=== PATIENT | male | born 1965 | race Caucasian/White ===

== ENCOUNTER 2023-10-04 11:07 | Day surgery (SDC) | payer OTHER, BC, MEDICAID, SELFPAY ==
[2023-10-04 11:28] VITALS: BP 120/84; PULSE 73; RESP 18; TEMP 36; O2SAT 97; BMI 31.8
[2023-10-04] MEDS: sodium chloride 0.9% 1,000 ML 30 ML IV (11:38)
--- NOTE | 2023-10-04 12:23 | ANES.PREANE2 ---
Pre-Anesthetic Assessment Height/Weight: Height 1.83 m Weight 106.594 kg Temp Pulse Resp BP Pulse Ox O2 Del Method 96.8 F L 73 18 120/84 97 Room Air 10/04/23 11:28 10/04/23 11:28 10/04/23 11:28 10/04/23 11:28 10/04/23 11:28 10/04/23 11:28 Preop Diagnosis: screening Operation Date: 10/04/23 13:00 Proposed Procedures p Colonoscopy 72497, G0121, Z12.11(Not Applicable) - Zheng Osorio, DO Was Beta Yan taken within 24 hours: N/A Was Clonidine taken within 24 hours: N/A Last intake: Intake Last Liquid Date 07/03/23 Last Liquid Time 20:30 Last Solid Date 10/02/23 Last Solid Time 20:00 Social Tobacco vapes, this morning Exam alert, oriented x 3, clear to auscultation bilaterally and regular rate & rhythm Airway Submandibular: within normal limits Cervical ROM: within normal limits Mallampati: Class I Comments: Comments: full morgan. upper dentures removed History/ROS No significant history except as noted and No significant complaints Pulmonary None reported CV/HEM None reported None reported Hepatic None reported GI None reported Metabolic None reported Musc/skel None reported Neuropsych Anxiety and Depression Anesthetic Plan ASA status: 2 Anesthesia: Anesthesia Evaluation and MAC Risk of > 500 ml blood loss (7ml/kg in children): Yes, adequate IV access and fluids planned Medications/Allergies Home Medications Medication Instructions Recorded Confirmed Last Taken Type bupropion HCl 300 mg 24 hr tablet, 300 mg PO QAM 08/28/23 10/04/23 10/03/23 History extended release (Wellbutrin XL) atomoxetine 60 mg capsule 60 mg PO DAILY 10/04/23 10/04/23 10/03/23 History (Strattera) fluoxetine 40 mg capsule (Prozac) 40 mg PO DAILY 10/04/23 10/04/23 10/03/23 History Allergies Allergy/AdvReac Type Severity Reaction Status Date / Time No Known Allergies Allergy Unverified 10/04/23 08:27 Data Anesthesia Cardiac Studies: No Data to Display
--- NOTE | 2023-10-04 12:25 | PC.NURSE ---
IV started on 5th attempt. pt states feels better. no pain or discomfort at iv site.
--- NOTE | 2023-10-04 14:03 | PM.HP ---
Providers/Chief Complaint Primary Care Provider: Jose Miguel Partida Chief Complaint: Z12.11 History of Present Illness Rick Calvo is a 58 year old male Review of Systems General: Reports: 10 or more systems reviewed and unremarkable except in HPI and below Medications/Allergies Home Medications Medication Instructions Recorded Confirmed Last Taken Type bupropion HCl 300 mg 24 hr tablet, 300 mg PO QAM 08/28/23 10/04/23 10/03/23 History extended release (Wellbutrin XL) atomoxetine 60 mg capsule 60 mg PO DAILY 10/04/23 10/04/23 10/03/23 History (Strattera) fluoxetine 40 mg capsule (Prozac) 40 mg PO DAILY 10/04/23 10/04/23 10/03/23 History Allergies Allergy/AdvReac Type Severity Reaction Status Date / Time No Known Allergies Allergy Unverified 10/04/23 08:27 Vitals/I&O/Wt Last Vital Signs Temp 96.8 F L 10/04/23 11:28 Pulse 73 10/04/23 11:28 Resp 18 10/04/23 11:28 BP 120/84 10/04/23 11:28 Pulse Ox 97 10/04/23 11:28 O2 Del Method Room Air 10/04/23 11:28 Weight last 48 hrs Weight 235 lb A&P Assessment and plan (1) Colon cancer screening: Plan Colonoscopy Attestations Medical Necessity Statement*: Home Coding Level of Care Code Acute Code for Chg Fwd Diagnoses Colon cancer screening Z12.11
[2023-10-04 14:27] VITALS: BP 91/58; PULSE 57; RESP 18; TEMP 36.5; O2SAT 99
[2023-10-04 14:40] VITALS: BP 90/53; PULSE 61; RESP 18; O2SAT 96
[2023-10-04 14:47] VITALS: BP 99/62; PULSE 63; RESP 16; O2SAT 96
--- NOTE | 2023-10-04 15:43 | ANE.PACU2 ---
Inpatient post-anesthesia follow up: Airway intact: Yes Vital signs: Temperature 97.7 F Pulse Rate 63 Respiratory Rate 16 Blood Pressure 99/62 Pulse Oximetry 96 Oxygen Delivery Me thod Room Air Oxygen Flow Rate Fraction of Inspir ed Oxygen Hydration adequate: Yes Nausea and vomiting: No Pain level: 2 Mental status: Baseline
== END 2023-10-04 15:02 | disposition home or self-care (01) ==
PROVIDERS: Family Provider Family Medicine; PCP Family Medicine; Visit Provider Surgery
PROC: 0DJD8ZZ Inspection of Lower Intestinal Tract, Via Natural or Artificial Opening Endoscopic (ICD-10-PCS; CPT 45378; principal; 2023-10-04 13:00)
DX: Z12.11 Encounter for screening for malignant neoplasm of colon (principal); K62.0 Anal polyp
CPT/HCPCS: 45381; 45385; 88305; J2704; J3010; J7030

== ENCOUNTER 2023-10-13 13:58 | Outpatient (CLI) | payer OTHER, BC, MEDICAID, SELFPAY ==
--- NOTE | 2023-10-13 14:00 | XR_ITS ---
WS: [id number] SCREENING DEXA SCAN [facility] CLINICAL INFORMATION: VITAMIN D DEFICIENCY COMPARISON: None. FINDINGS: The L1-L4 bone mineral density measures 1.192 g/cm2. This corresponds to a T score score of -0.2 and Z score of -0.7. Left femoral neck bone mineral density measures 0.850 g/cm2. This corresponds to a T score of -1.7 an d Z score of -1.8. Right femoral neck bone mineral density measures 0.839 g/cm2. This corresponds to a T score -1.8of an d Z score of -1.8. Mean femoral neck bone mineral density measures 0.845 g/cm2. This corresponds to a T score of -1.8 an d Z score of -1.8. XR/XR DEXA axial skeleton* [id number] IMPRESSION: Normal bone mineralization lumbar spine. Osteopenia femoral necks. Patient's FRAX calculated 10 year probability for major osteoporotic fracture i s 10.6% and osteoporotic hip fracture is 1.6%.
== END 2023-10-13 13:59 | disposition home or self-care (01) ==
LOC: RAD 13:59
PROVIDERS: PCP Family Medicine; Visit Provider Internal Medicine
DX: M81.0 Age-related osteoporosis without current pathological fracture (principal); E55.9 Vitamin D deficiency, unspecified
CPT/HCPCS: 77080